=== PATIENT | male | born 2000 | race Caucasian/White ===

== ENCOUNTER 2020-03-08 14:52 | Emergency (ER) | payer SELFPAY ==
[~2020-03-08] VITALS: Ht 177.8 cm; Wt 79.5 kg
[2020-03-08 14:58] VITALS: BP 134/98; TEMP 97.2
[2020-03-08 16:18] VITALS: PULSE 70
== END 2020-03-08 16:18 | disposition home or self-care (01) ==
LOC: COL.ER 14:52
DX: J45.909 Unspecified asthma, uncomplicated (principal)
CPT/HCPCS: J1100

== ENCOUNTER 2021-10-03 12:54 | Emergency (ER) | payer SELFPAY ==
[~2021-10-03] VITALS: Ht 175.3 cm; Wt 81.8 kg
[2021-10-03 13:28] VITALS: TEMP 97.8
[2021-10-03 14:57] VITALS: BP 113/76
[2021-10-03] MEDS ORDERED: DOXYCYCLINE 10100 MG PO (16:00)
[2021-10-03 16:41] VITALS: PULSE 57
== END 2021-10-03 16:41 | disposition home or self-care (01) ==
LOC: COL.ER 12:54
DX: S62.636B Displaced fracture of distal phalanx of right little finger, initial encounter for open fracture (principal); S60.414A Abrasion of right ring finger, initial encounter; Z88.0 Allergy status to penicillin; W31.2XXA Contact with powered woodworking and forming machines, initial encounter; Y99.0 Civilian activity done for income or pay